=== PATIENT | female | born 1985 | race African-American/Black ===

== ENCOUNTER 2016-07-04 16:15 | Inpatient (IN) | payer OTHER ==
[~2016-07-04 16:15] MED LIST: BUTORPHANOL TARTRATE 1 MG/ML VIAL IVPUSH ONE; ELECTROLYTE-148 SOLN 500 ML IV ONE; PROMETHAZINE HCL 25 MG/1 ML VIAL IVPUSH ONE
[2016-07-04] MEDS ORDERED: ELECTROLYTE-148 SOLN 1,000 ML IV SCH (16:45)
[2016-07-04] MEDS ORDERED: ELECTROLYTE-148 SOLN 500 ML IV SCH (16:45)
[2016-07-04 17:22] VITALS: BMI 25.0
[2016-07-04] MEDS ORDERED: BUTORPHANOL TARTRATE 1 MG/ML VIAL IVPUSH ONE (18:00)
[2016-07-04 18:04] LABS: BASOPHIL 0.2 % (0-2.0); EOSINOPHIL 0.2 % (0-4.5); MCH 31.4 pg (25.7-33.7); MCHC 33.6 g/dl (32.0-36.0); MEAN CELL VOLUME 93.5 fl (80-96); MEAN PLT VOLUME 9.2 fl (7.5-11.1); NEUTROPHILS 66.5 % (42.8-82.8); PLATELET COUNT 273 K/MM3 (134-434); WHITE BLOOD COUNT 7.4 K/mm3 (4.0-10.0)
[2016-07-04 18:20] LABS: INR 0.94 (0.82-1.09); PROTHROMBIN TIME (PATIENT) 10.3 SEC (9.98-11.88)
[2016-07-04] MEDS ORDERED: TUBERCULIN PPD 5 TU/0.1ML SYRINGE (IN PATIENT USE ONLY) ID ONE (18:30)
[2016-07-04 18:31] LABS: CALCIUM 8.7 mg/dL (8.5-10.1); CREATININE 0.7 mg/dL (0.55-1.02)
--- NOTE | 2016-07-04 18:48 | HP ---
Admitting History and Physical - Admission Chief Complaint: labor pains History of Present Illness: 31 at39.5 comes for labor pains. Pt is from [facility]. Opos, rpr neg, rubella pos, hiv neg. Also h/o abnormal pap.Now arom, clear. 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: No: Alzheimer's, CVA, Dementia, Migraine, Multiple Sclerosis, Peripheral Neuropathy, Parkinson's, Seizure, Syncope, TIA, Vertigo, Other Cardiovascular: No: AFIB, Aneurysm, Aortic Insufficiency, Aortic Stenosis, CAD, CHF, Deep Vein Thrombosis, HTN, Hyperlipdemia, MS, Mitral Insufficiency, Mitral Stenosis, Murmur, Pulmonary Hypertension, Other Pulmonary: No: Asthma, Bronchitis, Cancer, COPD, O2 Dependent, Pneumonia, Previously Intubated, Pulmonary Embolus, Pulmonary Fibrosis, Sleep Apnea, Other Gastrointestinal: No: Ascites, Cancer, Constipation, Crohn's Disease, Diverticulitis, Diverticulosis, Esophageal Varices, Gastritis, GERD, GI Bleed, Hemorrhoids, Hiatal Hernia, Inflamatory Bowel Disease, Irritable Bowel Disease, Pancreatitis, Peptic Ulcer Disease, Ulcerative Colitis, Other Hepatobiliary: No: Cirrhosis, Cholelithiasis, Cholecystitis, Choledocholithiasis , Hepatitis A, Hepatitis B, Hepatitis C, Other Renal/: No: Renal Failure, Renal Inusuff, BPH, Cancer, Hematuria, Hemodialysis , Neurogenic Bladder, Renal Calculi, UTI, Other Reproductive: No: Ectopic , Endometriosis, Fibroids, PID, Polycystic Ovary Syndrome, Postmenopausal, Other ...: 3 ...Para: 0 Heme/Onc: No: Anemia, B12 Deficiency, Bleeding Disorder, Cancer, Current Chemotherapy, Current Radiation Therapy, Hemochromatosis, Hypercoaguable State, Myeloproliferative Synd, Sickle Cell Disease, Sickle Cell Trait, Thrombocytopenia, Other Infectious Disease: No: AIDS, C-Diff, Herpes Zoster, HIV, MRSA, STD's, Tuberculosis, VREF, Other Psych: No: Addictions, Anxiety, Bipolar, Depression, Panic, Psychosis, Schizophrenia, Other Musculoskeletal: No: Bursitis, Chronic low back pain, Hemiparesis, Hemiplegia, Osteoarthritis, Paraplegia, Other Rheumatology: No: Fibromyalgia, Gout, Lupus, Rheumatoid Arthritis, Sarcoidosis, Vasculitis, Other ENT: No: Allergic Rhinitis, Sinusitis, Other Endocrine: No: Forest's Disease, Zurich's Disease, Diabetes Insipidus, Diabetes Mellitus, Hyperparathyroidism, Hyperthyroidism, Hypothyroidism, Osteopenia, SIADH, Other Dermatology: No: Basal Cell, Cellulitis, Eczema, Melanoma, Psoriasis, Squamous Cell, Other - Past Surgical History Past Surgical History: No: None, AAA Repair, AICD, Amputation, Appendectomy, Arthrosocopy, AV Fistula/Graft, Bariatric Surgery, Breast Biopsy, Bypass, CABG, Carotid Endarterectomy, Cataract Removal, Cholecystectomy, Colectomy, Colonoscopy, Colostomy, Craniotomy, , Cystectomy, Hernia Repair, Hysterectomy, Ileal Conduit, Ileosotomy, Joint Replacement, Kidney Transplant, Laminectomy, Liver Transplant, Mastectomy, Nephrectomy, Oopherectomy, Orchiectomy, Permanent Pacemaker, Prostatectomy, Splenectomy, Stent, Thoracotomy , TURP, Tonsillectomy, Tubal Ligation, Upper Endoscopy, Valve Replacement, Vasectomy, Vein Stripping/Ligation - Advance Directives Advance Directives: No: Living Will, Health Care Proxy, DNR, Organ Donor, Tissue Donor, MOLST - Smoking History Smoking history: Never smoked Have you smoked in the past 12 months: No Aproximately how many cigarettes per day: 0 - Alcohol/Substance Use Hx Alcohol Use: No History of Substance Use: denies: None, Cocaine, Heroin, Marijuana, Prescription , Tranquilizers - Social History Usual Living Arrangement: No: Alone, With Spouse, With Parent, With Significant Other, With Child, Assisted Living, Senior Care, Other Home Medications - Allergies Allergies/Adverse Reactions: Allergies Allergy/AdvReac Type Severity Reaction Status Date / Time No Known Allergies Allergy Verified 02/25/16 10:34 - Home Medications Home Medications: Ambulatory Orders Vitamins (Sjr) - 1 tab PO DAILY 06/07/16 Review of Systems - Review of Systems Constitutional: reports: No Symptoms Eyes: reports: No Symptoms HENT: reports: No Symptoms Neck: reports: No Symptoms Cardiovascular: reports: No Symptoms Respiratory: reports: No Symptoms Gastrointestinal: reports: No Symptoms Genitourinary: reports: No Symptoms Musculoskeletal: reports: No Symptoms Integumentary: reports: No Symptoms Hematology/Lymphatic: reports: No Symptoms Psychiatric: reports: No Symptoms 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ination Vital Signs: Vital Signs Temperature 98.7 F 07/04/16 18:00 Pulse Rate 75 07/04/16 18:00 Respiratory Rate 20 07/04/16 18:00 Blood Pressure 123/77 07/04/16 18:00 O2 Sat by Pulse Oximetry (%) Constitutional: No: Well Nourished, No Distress, Calm, Anxious, Ashen, Cachectic , Diaphoresis, Mild Distress, Moderate Distress, Severe Distress, Obese, Pallor , Poor Hygeine, Thin, Other Eyes: No: WNL, Conjunctiva Clear, EOM Intact, Cataracts, Diplopia, Occular Prosthesis, PERRL, Ptosis, Sclera Icterus, Tearing, Other HENT: No: WNL, Atraumatic, Normocephalic, Drooling, Epistaxis, Hoarseness, Nasal Congestion, Pharyngeal Erythema, Rhinnorhea, Thrush, Tonsillar Exudate, Other Cardiovascular: No: WNL, Regular Rate and Rhythm, Bradycardia, Tachycardia, Pulse Irregular, Bruit, JVD, Gallop, Murmur, Rub, S1, S2, S3, S4, Varicosities, Other Respiratory: No: WNL, Regular, CTA Bilaterally, Accessory Muscle Use, Bradypnea , Rodrigue-Gardiner, Cough, Diminished, Dullness, Hyperresonant, Intubated, Kussmaul , Mechanically Ventilated, On BiPap, On Nasal O2, On Venti-Mask, Orthopnea, Poor Air Entry, Rales, Rhonchi, SOB, SOB on Exertion, Stridor, Tachypnea, Wheezes, Other Gastrointestinal: No: WNL, Normal Bowel Sounds, Soft, Abdomen, Obese, Ascites, Distention, Hematemesis, Hemorrhoids, Hepatomegaly, Hernia, Hyperactive Bowel Sounds, Hypoactive Bowel Sounds, Melena, Palpable Mass, Pulsatile Mass, Rectal Bleeding, Splenomegaly, Tenderness, Tenderness, Epigastrium, Tenderness, Rebound , Vomiting, Other Breast(s): No: WNL, Left, Right, Breast Implants, Dimpling, Discharge from Nipple, Gynecomastia, Mass, Nipple Inversion, Skin Changes, Other Extremities: No: WNL, Amputation, Calf Tenderness, Cold, Cool, Cyanosis, Deformity, Delayed Capillary Refill, Erythema, External Rotation, Internal Rotation, Pallor, Shortened, Other Labs: CBC, BMP 07/04/16 17:20 07/04/16 17:20 Assessment/Plan as above admit labs epidural prn expect
[2016-07-04] MEDS ORDERED: FENTANYL/BUPIVACAINE/NS/PF - PCEA - 50 ML DISP.SYRIN EP SCH (19:45)
--- NOTE | 2016-07-04 22:11 | PN ---
Ante-Partal Exam - Subjective Vital Signs: Vital Signs Temperature 98 F 07/04/16 19:30 Pulse Rate 77 07/04/16 20:45 Respiratory Rate 20 07/04/16 20:45 Blood Pressure 128/71 07/04/16 20:45 O2 Sat by Pulse Oximetry (%) 100 07/04/16 20:45 Headache: No Visual changes: No Right upper quadrant pain: No - Contractions Contractions: Yes Regularity: Regular Intensity: Moderate Monitor Mode: External - Exam during Labor Heart Rate: 150 Variability: Moderate Heart Rate Location: Midline Category: I Monitor Accelerations: Present Monitor Decelerations: None Exam: Vaginal Dilatation (cm): 10
[2016-07-04] MEDS ORDERED: METHYLERGONOVINE MALEATE 0.2 MG/1 ML AMP IM PRN (22:19)
[2016-07-04] MEDS ORDERED: BENZOCAINE 28 GM HEMORRHOIDAL OINTMENT TP PRN (22:19)
[2016-07-04] MEDS ORDERED: oxyCODONE HCL 5 MG TABLET PO PRN (22:19)
[2016-07-04] MEDS ORDERED: WITCH HAZEL 50% (TUCKS) 40 PAD/JAR PAD TP PRN (22:19)
[2016-07-04] MEDS ORDERED: BISACODYL 10 MG SUPP.RECT RC PRN (22:19)
[2016-07-04] MEDS ORDERED: BENZOCAINE 20% 57 GM BOTTLE TP PRN (22:19)
--- NOTE | 2016-07-04 22:22 | PN ---
Delivery - Delivery Vaginal Delivery: No Problems Type of Anesthesia: Local Episiotomy/Laceration: Midline EBL (cc): 300 Delivery, Single - Feeding Plan Initial Plan: Exclusive throughout hospitalization
[2016-07-04] MEDS ORDERED: OXYTOCIN 20 UNITS in 0.9% NS 1,000 ML IV SCH (22:30)
[2016-07-05] MEDS: IBUPROFEN 600 MG TABLET (FP) PO PRN ×3 (00:49→20:23)
[2016-07-05] MEDS: ACETAMINOPHEN 325 MG TABLET (FP) PO PRN ×3 (00:49→20:24)
--- NOTE | 2016-07-05 04:51 | PN ---
Post Progress Note Post Day: 1 Type of Delivery: Vital Signs: Vital Signs Temperature 98.5 F 07/05/16 00:30 Pulse Rate 82 07/05/16 00:30 Respiratory Rate 18 07/05/16 00:30 Blood Pressure 109/64 07/05/16 00:30 O2 Sat by Pulse Oximetry (%) 100 07/04/16 22:30 Breast Exam: Yes: Soft Uterus: Yes: Fundus Firm Abdomen/GI: Yes: Abdomen soft Lochia: Yes: Rubra Lochia, amount: Small Extremities: Yes: Calves non-tender Perineum: Yes: Intact Activity: Ambulating - Labs Labs: CBC WBC 7.4 K/mm3 (4.0-10.0) 07/04/16 17:20 RBC 3.79 M/mm3 (3.60-5.2) 07/04/16 17:20 Hgb 11.9 GM/dL (10.7-15.3) 07/04/16 17:20 Hct 35.4 % (32.4-45.2) 07/04/16 17:20 MCV 93.5 fl (80-96) 07/04/16 17:20 MCHC 33.6 g/dl (32.0-36.0) 07/04/16 17:20 RDW 14.0 % (11.6-15.6) 07/04/16 17:20 Plt Count 273 K/MM3 (134-434) 07/04/16 17:20 MPV 9.2 fl (7.5-11.1) 07/04/16 17:20 Neutrophils % 66.5 % (42.8-82.8) 07/04/16 17:20 Lymphocytes % 23.0 % (8-40) D 07/04/16 17:20 Monocytes % 10.1 % (3.8-10.2) 07/04/16 17:20 Eosinophils % 0.2 % (0-4.5) 07/04/16 17:20 Basophils % 0.2 % (0-2.0) 07/04/16 17:20 Assessment/Plan as above oob reg diet
[2016-07-05 08:27] LABS: BASOPHIL 0.1 % (0-2.0); MCH 31.2 pg (25.7-33.7); MCHC 33.2 g/dl (32.0-36.0); MEAN CELL VOLUME 94.2 fl (80-96); MEAN PLT VOLUME 8.6 fl (7.5-11.1); NEUTROPHILS 73.3 % (42.8-82.8); PLATELET COUNT 234 K/MM3 (134-434); RDW 13.9 % (11.6-15.6); WHITE BLOOD COUNT 11.6 K/mm3 (4.0-10.0)
[2016-07-05] MEDS ORDERED: DIPHTH,PERTUSS(ACELL),TET 0.5 ML DISP.SYRIN IM ONE (10:00)
[2016-07-05] MEDS ORDERED: SENNOSIDES/DOCUSATE COMBO (SENNA PLUS) TABLET (UD) PO PRN (22:00)
[2016-07-06 08:20] VITALS: BP 110/65; PULSE 76; TEMP 98
--- NOTE | 2016-07-06 08:53 | PN ---
Progress Note (short form) - Note Progress Note: ppd 2 doing well, no c/o abdomen uterus firm, non tender no calf tenderness CBC, BMP 07/05/16 07:30 07/04/16 17:20 Last Vital Signs Temp Pulse Resp BP Pulse Ox 98 F 76 20 110/65 100 07/06/16 08:19 07/06/16 08:19 07/06/16 08:19 07/06/16 08:19 07/04/16 22:30 plan d/c home , rtc 4 weeks
[2016-07-06] MEDS: ACETAMINOPHEN 325 MG TABLET (FP) PO PRN (09:51)
[2016-07-06] MEDS: IBUPROFEN 600 MG TABLET (FP) PO PRN (09:53)
--- NOTE | 2016-08-25 14:04 | DS ---
DATE OF ADMISSION: DATE OF DISCHARGE: DATE OF DICTATION: 08/24/2016 Patient was seen throughout her hospital course and noted to be doing well. The patient was subsequently discharged home to be followed up in the office. KRISTIE IZAGUIRRE M.D. FARIDA/[id number]
== END 2016-07-06 12:30 | disposition home or self-care (01) | DRG 775 ==
LOC: JLDR 16:15 → J3W 07-05 00:44
PROVIDERS: ADMIT Obstetrics & Gynecology; ATTEND Obstetrics & Gynecology
PROC: 10E0XZZ Delivery of Products of Conception, External Approach (ICD-10-PCS; principal; 2016-07-04)
PROC: 0W8NXZZ Division of Female Perineum, External Approach (ICD-10-PCS; 2016-07-04)
DX: O80 Encounter for full-term uncomplicated delivery (principal); Z3A.39 39 weeks gestation of pregnancy; Z37.0 Single live birth
CPT/HCPCS: 36415; 59409; 80048; 85025; 85610; 85730; 86593; 86850; 86900; 86901; 90715

== ENCOUNTER 2017-08-22 07:00 | Inpatient (IN) | payer OTHER ==
[2017-08-22] MEDS ORDERED: ELECTROLYTE-148 SOLN 1,000 ML IV SCH ×2 (07:30→08:15)
[2017-08-22 07:35] VITALS: BMI 27.7
[2017-08-22] MEDS ORDERED: BUPIVACAINE HCL/PF 0.25% (2.5MG/ML) 10 ML VIAL ONE (08:09)
[2017-08-22] MEDS ORDERED: FENTANYL/BUPIVACAINE/NS/PF - PCEA - 50 ML DISP.SYRIN EP ONE ×2 (08:10→11:40)
[2017-08-22 08:15] LABS: BASO % 0.3 % (0-2.0); EOS % 0.7 % (0-4.5); HEMATOCRIT 35.6 % (32.4-45.2); HEMOGLOBIN 11.9 GM/dL (10.7-15.3); LYMPH % 25.7 % (8-40); MCH 31.5 pg (25.7-33.7); MCHC 33.5 g/dl (32.0-36.0); MEAN PLT VOLUME 8.9 fl (7.5-11.1); MONO % 9.8 % (3.8-10.2); NEUT % 63.5 % (42.8-82.8); PLATELET COUNT 250 K/MM3 (134-434); RBC 3.79 M/mm3 (3.60-5.2); RDW 13.5 % (11.6-15.6); WHITE BLOOD COUNT 5.9 K/mm3 (4.0-10.0)
--- NOTE | 2017-08-22 08:21 | HP ---
Past Medical History - Primary Care Physician PCP:: Shivani Castañeda - Admission Chief Complaint: 32 yrs , 39.6/7 weeks, onset LP since 4.30 AM, srom since 6.30 AM History of Present Illness: pnc at [address] [place] [address] . wt gain 11 lbs panel : 02/04/17 , O pos, , hbsag neg, Rpr nr, Hiv neg, Rubella immune , sickle neg, CF neg, gc/ct neg 05/23/17 Pngt 97, rpr nr, Quantiferon neg 07/04. Gbs neg, gc/ct neg, h/h 11.0/34, plt 271 . sono by MFM done 20 weeks sono normal anatomy on 04/09/17 h/o ampicillingiven during pregn History Source: Patient, Medical Record Limitations to Obtaining History: No Limitations - Past Medical History SURGICAL SERVICES DIRECTOR: No: Migraine, Seizure Cardiovascular: No: HTN Pulmonary: No: Asthma Hepatobiliary: No: Cholelithiasis Reproductive: Yes: Other (10/09/16 pap NILM, non 16/18 HR HPV pos) ...: 4 ...Para: 1 ( 07/04/2016 40 wks 6'7" ) ...Term: 1 ...: 0 ...Spon : 0 ...Induced : 2 (2008, 2013 ) ...Multiple Gestation: 0 ...LMP: 12/15/16 (Mistaken dates ) ... Weeks Gestation by Dates: 35.5 (By sono 39.6 weeks gestation ) ...EDC by Dates: 09/21/17 ...EDC by Sono: 08/23/17 (corrected EDC by sono on 03/12/17 -16.4 weeks .) Infectious Disease: Yes: STD's (Non 16/18 HR HPV pos 09/2016) Psych: No: Addictions, Anxiety, Bipolar, Depression, Panic, Schizophrenia Endocrine: No: Diabetes Mellitus, Hyperthyroidism, Hypothyroidism - Past Surgical History Past Surgical History: Yes: None Hx Myomectomy: No Hx Transabdominal Cerclage: No - Smoking History Smoking history: Never smoked Have you smoked in the past 12 months: No Aproximately how many cigarettes per day: 0 - Alcohol/Substance Use Hx Alcohol Use: No History of Substance Use: reports: None Home Medications - Allergies Allergies/Adverse Reactions: Allergies Allergy/AdvReac Type Severity Reaction Status Date / Time No Known Allergies Allergy Verified 02/25/16 10:34 - Home Medications Home Medications: Ambulatory Orders Vitamins (Sjr) - 1 tab PO DAILY 06/07/16 Ibuprofen [Motrin -] 600 mg PO QID #28 tablet 07/05/16 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 - Maternity Vital Signs: Vital Signs Temperature 99.3 F 08/22/17 07:00 Pulse Rate 95 H 08/22/17 07:00 Respiratory Rate 20 08/22/17 07:00 Blood Pressure 117/82 08/22/17 07:00 O2 Sat by Pulse Oximetry (%) Constitutional: Yes: Well Nourished, Severe Distress Eyes: Yes: WNL HENT: Yes: WNL, Normocephalic Neck: Yes: WNL Cardiovascular: Yes: WNL, Regular Rate and Rhythm Lungs: Clear to auscultation Breast(s): Yes: WNL - Abdominal Exam/OB Fundal Height: 38 Number of Fetuses: Single Presentation: Vertex Contractions: Yes Regularity: Regular (2-4 min) Intensity: Mod/Strong Monitor Mode: External Heart Rate (range): 140 Heart Rate Location: [facility] Category: I Accelerations: Uniform Decelerations: None - Vaginal Exam/OB Vaginal Bleediing: No Speculum Exam: No Dilatation (cm): 6 Effacement (%): 100 Amniotic Membrane Status: Leaking (fore water bulging) Nitrazine Test: Positive Amniotic Fluid: Yes: Clear Presentation: Vertex/Position (exam at 8.00 AM) Station: -2 - 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 Musculoskeletal: Yes: WNL Extremities: Yes: WNL. No: Calf Tenderness Edema: Yes Edema: LLE: 1+, RLE: 1+ Integumentary: Yes: Tattoos Deep Tendon Reflex Grade: Normal +2 ...Motor Strength: WNL Psychiatric: Yes: WNL, Alert, Oriented - Labs Lab Results: Laboratory Tests 08/22/17 08/22/17 08/22/17 07:58 07:58 07:58 WBC 5.9 D RBC 3.79 Hgb 11.9 Hct 35.6 Plt Count 250 Neutrophils % 63.5 Lymphocytes % 25.7 D Monocytes % 9.8 Eosinophils % 0.7 D Basophils % 0.3 PT with INR 10.40 INR 0.92 PTT (Actin FS) 27.0 Sodium 137 Potassium 3.8 Chloride 105 Carbon Dioxide 23 BUN 7 Creatinine 0.8 Random Glucose 105 Calcium 8.7 RPR Titer 08/22/17 07:58 WBC RBC Hgb Hct Plt Count Neutrophils % Lymphocytes % Monocytes % Eosinophils % Basophils % PT with INR INR PTT (Actin FS) Sodium Potassium Chloride Carbon Dioxide BUN Creatinine Random Glucose Calcium RPR Titer Nonreactive Problem List - Problems (1) with 39 completed weeks gestation Code(s): Z3A.39 - 39 WEEKS GESTATION OF (2) Labor established Code(s): GYY9564 - Assessment/Plan 32 yrs 39.6/7 weeks in active labor, possible high leak . Gbs neg Plan Epidural labor analgesia given at 8.20 AM trial vaginal delivery
[2017-08-22] MEDS ORDERED: NALOXONE HCL 0.4 MG/ML VIAL IVPUSH PRN (08:30)
[2017-08-22] MEDS ORDERED: FENTANYL/BUPIVACAINE/NS/PF - PCEA - 50 ML DISP.SYRIN EP SCH (08:30)
[2017-08-22 08:40] LABS: ANION GAP 9 (8-16); BLOOD UREA NITROGEN 7 mg/dL (7-18); CALCIUM 8.7 mg/dL (8.5-10.1); CHLORIDE 105 mmol/L (98-107); CO2 23 mmol/L (21-32); CREATININE 0.8 mg/dL (0.55-1.02); GLUCOSE,RANDOM 105 mg/dL (74-106); POTASSIUM 3.8 mmol/L (3.5-5.1); SODIUM 137 mmol/L (136-145)
[2017-08-22 08:51] LABS: INR 0.92 (0.82-1.09); PROTHROMBIN TIME (PATIENT) 10.4 SEC (9.7-13.0)
--- NOTE | 2017-08-22 10:52 | PN ---
Progress Note, Labor Vaginal Exam #1 Labor Exam Date: 08/22/17 Labor Exam Time: 10:20 Heart Rate (range): 130 Dilatation: 4-6 Effacement (%): 100 Amniotic Membrane Status: Leaking (AROM fore water clear fluid) Presentation: Vertex/Position Station: -1 Remarks: fhr cat-1 uc 4-6 min Plan Pitocin augmentation Selected Entries 08/22/17 08/22/17 10:00 10:15 Temperature 98.4 F Pulse Rate 64 Respiratory 18 Rate Blood Pressure 103/59 O2 Sat by Pulse 100 Oximetry (%) Vaginal Exam #2 Labor Exam Date: 08/22/17 Labor Exam Time: 13:00 Heart Rate (range): 120 Dilatation: 10 Effacement (%): 100 Amniotic Membrane Status: Ruptured Presentation: Vertex/Position Station: +3 Remarks: fhr cat-1 uc 2-3 min pt pushing Selected Entries 08/22/17 08/22/17 11:15 12:00 Temperature 98.6 F Pulse Rate 80 Respiratory 18 Rate Blood Pressure 102/67 O2 Sat by Pulse 100 Oximetry (%)
[2017-08-22] MEDS ORDERED: OXYTOCIN 30 UNITS in 0.9% NS 30 UNIT/500 ML INFUS.BAG IVPB SCH (11:00)
[2017-08-22] MEDS ORDERED: OXYTOCIN 30 UNITS in 0.9% NS 30 UNIT/500 ML INFUS.BAG IVPB ONE (11:12)
[2017-08-22] MEDS ORDERED: OXYTOCIN 20 UNITS in 0.9% NS 20 UNIT/1,000 ML INFUS.BAG IV ONE (13:06)
[2017-08-22] MEDS ORDERED: BENZOCAINE 20% 57 GM BOTTLE TP PRN (13:34)
[2017-08-22] MEDS ORDERED: BISACODYL 10 MG SUPP.RECT RC PRN (13:34)
[2017-08-22] MEDS ORDERED: oxyCODONE HCL 5 MG TABLET PO PRN (13:34)
[2017-08-22] MEDS ORDERED: METHYLERGONOVINE MALEATE 0.2 MG/1 ML AMP IM PRN (13:34)
[2017-08-22] MEDS ORDERED: BENZOCAINE 28 GM HEMORRHOIDAL OINTMENT TP PRN (13:34)
[2017-08-22] MEDS ORDERED: WITCH HAZEL 50% (TUCKS) 40 PAD/JAR PAD TP PRN (13:34)
[2017-08-22] MEDS ORDERED: OXYTOCIN 20 UNITS in 0.9% NS 20 UNIT/1,000 ML INFUS.BAG IV SCH (13:45)
--- NOTE | 2017-08-22 13:45 | PN ---
Delivery - Delivery Vaginal Delivery: No Problems, Spontaneous (baby delievered Vx, DIOGO position, immediate nasal & oral suction was done . .perineum intact) Type of Anesthesia: Epidural Episiotomy/Laceration: None EBL (cc): 200 Delivery, Single - Stages of Labor Date 1st Stage Initiatied: 08/22/17 Time 1st Stage Initiated: 05:00 Date 2nd Stage Initiated: 08/22/17 Time 2nd Stage Initiated: 13:00 Date of Delivery: 08/22/17 Time of Delivery: 13:15 Date Placenta Delivered: 08/22/17 Time Placenta Delivered: 13:17 Placenta: Yes: Spontaneous, Uterine Exploration - Condition of Infant Research Chef/Analytical Technician Present: No Gender: Female Weight: 6 lb 12 oz Position: Left, OA Total Hours ROM (Hrs/Mins): 4hrs 42 mi - 1 Minute Total Score: 9 5 Minutes Total Score: 9 - Feeding Plan Initial Plan: Elected not to breastfeed exclusively throughout hospitalization Remarks - Remarks Remarks: 32 yrs , 39.6/7 wks,admitted in labor. gbs neg .. care at , [facility] intrapartum course uneventful
[2017-08-22] MEDS: FERROUS SO4 325 MG TABLET (FP) PO SCH (20:34)
[2017-08-23] MEDS: IBUPROFEN 600 MG TABLET (FP) PO PRN ×2 (00:22→16:34)
[2017-08-23] MEDS: ACETAMINOPHEN 325 MG TABLET (FP) PO PRN ×2 (00:23→16:35)
--- NOTE | 2017-08-23 06:09 | PN ---
Progress Note (short form) - Note Progress Note: ppd 1doing well, no excess vaginal bleeding CBC, BMP 08/22/17 07:58 08/22/17 07:58 Last Vital Signs Temp Pulse Resp BP Pulse Ox 99.2 F 75 18 88/54 100 08/23/17 02:00 08/23/17 02:00 08/23/17 02:00 08/23/17 02:00 08/22/17 14:15 abdomen soft, no cva uterus firm lochia mild ppd 1 afebrile , plan ambulate , cbc
[2017-08-23 07:37] LABS: BASO % 0.2 % (0-2.0); EOS % 0.5 % (0-4.5); HEMATOCRIT 35.4 % (32.4-45.2); HEMOGLOBIN 11.7 GM/dL (10.7-15.3); LYMPH % 25.7 % (8-40); MCH 31.5 pg (25.7-33.7); MCHC 33.2 g/dl (32.0-36.0); MEAN CELL VOLUME 94.8 fl (80-96); NEUT % 63.6 % (42.8-82.8); PLATELET COUNT 271 K/MM3 (134-434); RBC 3.73 M/mm3 (3.60-5.2); RDW 13.6 % (11.6-15.6); WHITE BLOOD COUNT 8.3 K/mm3 (4.0-10.0)
[2017-08-23] MEDS: PRENATAL VITAMINS W/ FOLIC ACID TABLET (FP) PO SCH (09:36)
[2017-08-23] MEDS: FERROUS SO4 325 MG TABLET (FP) PO SCH ×2 (09:37→17:52)
[2017-08-23] MEDS ORDERED: DIPHTH,PERTUSS(ACELL),TET 0.5 ML DISP.SYRIN IM ONE (10:00)
[2017-08-23] MEDS ORDERED: SENNOSIDES/DOCUSATE COMBO (SENNA PLUS) TABLET (UD) PO PRN (22:00)
[2017-08-24] MEDS: FERROUS SO4 325 MG TABLET (FP) PO SCH (07:13)
--- NOTE | 2017-08-24 07:49 | DS ---
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-DIETARY COOK Vital Signs: Vital Signs Temperature 98.2 F 08/23/17 22:00 Pulse Rate 77 08/23/17 22:00 Respiratory Rate 18 08/23/17 22:00 Blood Pressure 117/56 08/23/17 22:00 O2 Sat by Pulse Oximetry (%) 100 08/22/17 14:15 Constitutional: Yes: Well Nourished, Other (c/o cramps) Eyes: Yes: WNL HENT: Yes: WNL Neck: Yes: WNL Cardiovascular: Yes: WNL Respiratory: Yes: WNL Gastrointestinal: Yes: WNL ...Rectal Exam: Yes: WNL Renal/: Yes: WNL Pelvis: Yes: WNL ....Post : Yes: Uterus firm, Uterus non-tender, Moderate lochia rubra ( perineum intact) Breast(s): Yes: WNL (BF, Not engorged) Musculoskeletal: Yes: WNL Extremities: Yes: WNL Edema: Yes Edema: LLE: Trace, RLE: Trace Integumentary: Yes: WNL Neurological: Yes: WNL, Alert, Oriented ...Motor Strength: WNL Psychiatric: Yes: WNL, Alert, Oriented Labs: CBC, BMP 08/23/17 06:00 08/22/17 07:58 Delivery - Delivery Vaginal Delivery: No Problems, Spontaneous (baby delievered Vx, DIOGO position, immediate nasal & oral suction was done . .perineum intact) Type of Anesthesia: Epidural Episiotomy/Laceration: None EBL (cc): 200 Delivery, Single - Stages of Labor Date 1st Stage Initiatied: 08/22/17 Time 1st Stage Initiated: 05:00 Date 2nd Stage Initiated: 08/22/17 Time 2nd Stage Initiated: 13:00 Date of Delivery: 08/22/17 Time of Delivery: 13:15 Time Placenta Delivered: 13:17 Placenta: Yes: Spontaneous, Uterine Exploration - Condition of Infant Blood Or Blood Bank Technician/Layout Technician Present: No Infant Gender: Female Weight: 6 lb 12 oz Position: Left, OA Total Hours ROM (Hrs/Mins): 4hrs 42 mi - 1 Minute Total Score: 9 5 Minutes Total Score: 9 - [place] Feeding Plan Initial Plan: Elected not to breastfeed exclusively throughout hospitalization Remarks - Remarks Remarks: 32 yrs , 39.6/7 wks,admitted in labor. gbs neg .. care at , [facility] intrapartum course uneventful pp course uneventful discharge today Discharge Summary Reason For Visit: LABOR Current Active Problems Labor established (Acute) with 39 completed weeks gestation (Acute) Condition: Stable - Instructions Diet, Activity, Other Instructions: Post Instructions DIET: Continue good diet high in protein, calcium, and iron rich foods. Drink at least eight (8) glasses of water daily in addition to other fluids. ct Regular diet MEDICATIONS: Continue vitamins and iron as previously directed. Motrin and Tylenol may be taken for minor discomfort. ACTIVITY: Mild to moderate exercise may be started in two (2) weeks. Take frequent rest periods. Resume normal activity after six (6) week check up. WOUND CARE OF OPERATIVE SITE: Continue use of perineal bottle until vaginal discharge stops. Keep area clean. Shower daily. Keep abdominal wound dry. Report any drainage or redness to physician. Tub baths, tampons and douches are not permitted for [address] Breast feeding & or Bottle feeding BREAST CARE: (For those that are not breast feeding): If engorgement occurs: Wear tight fitting bra. Take Tylenol or Motrin for pain. Apply cold packs (ice in bags to each breast ) FAMILY PLANNING: There are many control alternatives to pursue and they should be discussed at your first office visit. You may resume sexual activity after your six (6) week check up. (Remember, breast feeding is not a contraceptive) NEXT PHYSICIAN APPOINTMENT: Be certain to call for a six (6) week appointment, unless otherwise directed. Call Clinic or got to Emergency Dept if you have any of the following: Heavy vaginal bleeding Painful urination Leg pain Unusual odor noted to vaginal bleeding High fever Red streaking noted on breast Referrals: Shivani Castañeda MD [Staff Physician] - Disposition: HOME - Home Medications Comprehensive Discharge Medication List: Ambulatory Orders Vitamins (Sjr) - 1 tab PO DAILY 06/07/16 Acetaminophen [Tylenol .Regular Strength -] 650 mg PO Q3H PRN tablet 08/23/17 Ibuprofen [Motrin -] 200 mg PO Q4H PRN tablet 08/23/17 Vitamins (Sjr) - 1 tab PO DAILY tablet 08/23/17
[2017-08-24 08:31] VITALS: BP 120/73; PULSE 64; TEMP 98
[2017-08-24] MEDS: PRENATAL VITAMINS W/ FOLIC ACID TABLET (FP) PO SCH (09:28)
[2017-08-24] MEDS: ACETAMINOPHEN 325 MG TABLET (FP) PO PRN (09:31)
[2017-08-24] MEDS: IBUPROFEN 600 MG TABLET (FP) PO PRN (09:32)
== END 2017-08-24 10:20 | disposition home or self-care (01) | DRG 775 ==
LOC: JLDR 07:00 → JDEL 07:00 → EDSTATUS 07:13 → J3W 15:10
PROVIDERS: ADMIT Obstetrics & Gynecology; ATTEND Obstetrics & Gynecology
PROC: 10E0XZZ Delivery of Products of Conception, External Approach (ICD-10-PCS; principal; 2017-08-22)
DX: O80 Encounter for full-term uncomplicated delivery (principal); Z3A.39 39 weeks gestation of pregnancy; Z37.0 Single live birth
CPT/HCPCS: 36415; 59409; 80048; 85025; 85610; 85730; 86593; 86850; 86900; 86901; 90715

== ENCOUNTER → 2018-07-25 | Emergency (ER) | payer OTHER ==
[~2018-07-25] MED LIST changes: +ACETAMINOPHEN 1000 MG/100 ML VIAL (NON FORMULARY) IVPB ONE; +ACETAMINOPHEN INJECTION 100 ML IVPB ONE; -BUTORPHANOL TARTRATE 1 MG/ML VIAL IVPUSH ONE; -ELECTROLYTE-148 SOLN 500 ML IV ONE; +FAMOTIDINE 20 MG/50 ML IVPB 20 MG/50 ML MG IVPB ONE; +MAG HYDROX/AL HYDROX/SIMETH -MYLANTA- ORAL SUSPENSION PO ONE; +MAG HYDROX/AL HYDROX/SIMETH 30 ML UNIT-DOSE CUP ONE; -PROMETHAZINE HCL 25 MG/1 ML VIAL IVPUSH ONE; +RANITIDINE HCL 150 MG TABLET (FP) ONE; +RANITIDINE HCL 150 MG TABLET (FP) PO ONE; +SODIUM CHLORIDE 1,000 ML IV STA
[2018-07-25 09:15] VITALS: BP 110/54; PULSE 73; TEMP 98.1; BMI 29.7
--- NOTE | 2018-07-25 09:50 | PDOC ---
History of Present Illness - General Chief Complaint: Chest Pain Stated Complaint: CHEST PAIN Time Seen by Provider: 07/25/18 09:50 History Source: Patient Exam Limitations: No Limitations - History of Present Illness Initial Comments: 33 yo AA 31 week F w a pmh of HCL presents to the ER with right sided pleuritic chest pain for 1 day's duration. The patient states the pain began yesterday but has been getting worse so she came to the ER to be evaluated. She rates the pain as 6/10 and says it does not radiate. It is associated with slight nausea but no emesis. She denies any excessive diaphoresis. She states the pain is much worse when she takes a deep breath. The pain feels better when she leans forward and feels worse when she lies down. The pain is reproducible with palpation and her pain is worsened when she pushes on her chest. Moving her right arm also worsens her pain. She denies having experienced any cough, recent ravel, estrogen or other hormonal usage, or any personal or family history of blood clots. She denies any hx of hemoptysis or malignancy. She endorses recent bilateral leg swelling from but denies unilateral leg swelling one worse than the other. PCP: [facility] QUALITY CONTROL TECH: [facility] Social Hx: Denies smoking, drinking, or other substance usage Allergies: NKA, NKDA PSH: None reported Past History - Past Medical History Allergies/Adverse Reactions: Allergies Allergy/AdvReac Type Severity Reaction Status Date / Time No Known Allergies Allergy Verified 08/22/17 14:41 Home Medications: Ambulatory Orders NK [No Known Home Medication] 07/25/18 Asthma: No Cancer: No Cardiac Disorders: No COPD: No Diabetes: No HTN: No Seizures: No Thyroid Disease: No - Immunization History Immunization Up to Date: Yes - Suicide/Smoking/Psychosocial Hx Smoking History: Never smoked Have you smoked in the past 12 months: No Number of Cigarettes Smoked Daily: 0 Hx Alcohol Use: No Drug/Substance Use Hx: No Hx Substance Use Treatment: No Review of Systems - Review of Systems Able to Perform ROS?: Yes Comments:: CONSTITUTIONAL: Absent: fever, no chills, no fatigue EYES: Absent: visual changes ENT: Absent: ear pain, no sore throat CARDIOVASCULAR: Present: Chest pain Absent: no palpitations RESPIRATORY: Present: SOB Absent: cough GI: Absent: abdominal pain, no nausea, no vomiting, no constipation, no diarrhea GENITOURINARY: Absent: dysuria, no frequency, no hematuria MUSKULOSKELETAL: Absent: back pain, no arthralgia, no myalgia SKIN: Absent: rash NEURO: Absent: headache *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 - Vital Signs Last Vital Signs Temp Pulse Resp BP Pulse Ox 98.1 F 73 18 110/54 L 100 07/25/18 09:13 07/25/18 09:13 07/25/18 09:13 07/25/18 09:13 07/25/18 09:13 - 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 Comments: GENERAL: Well-appearing, well-nourished. No apparent distress. HEENT: Normocephalic, atraumatic. PERRL, EOM intact. CARDIOVASCULAR: Normal S1, S2. Regular rate and rhythm. PULMONARY: No evidence of respiratory distress. Lungs clear to auscultation bilaterally. No wheezing, rales or rhonchi. ABDOMEN: Soft, non-distended, non-tender. EXTREMITIES: Normal ROM in all four extremities. No gross deformities. SKIN: Warm, dry. No rash NEUROLOGICAL: No focal neurological deficits. ED Treatment Course - LABORATORY CBC & Chemistry Diagram: 07/25/18 10:16 07/25/18 10:16 Medical Decision Making - Medical Decision Making 33 yo AA 31 week F w a pmh of HCL presents to the ER with right sided pleuritic chest pain for 1 day's duration. The patient states the pain began yesterday but has been getting worse so she came to the ER to be evaluated. She rates the pain as 6/10 and says it does not radiate. It is associated with slight nausea but no emesis. She denies any excessive diaphoresis. She states the pain is much worse when she takes a deep breath. The pain feels better when she leans forward and feels worse when she lies down. The pain is reproducible with palpation and her pain is worsened when she pushes on her chest. Moving her right arm also worsens her pain. She denies having experienced any cough, recent ravel, estrogen or other hormonal usage, or any personal or family history of blood clots. She denies any hx of hemoptysis or malignancy. She endorses recent bilateral leg swelling from but denies unilateral leg swelling one worse than the other. VS: WNL DDx IBNLT: ACS/MT, arrhythmia, electrolyte/metabolic disturbance, PNA, pneumothorax, MSK chest pain, PE, gastric reflux/GERD Plan: Labs, EKG, CXR, ECHO, IV hydration, analgesia, GI cocktail, re-assess. Labs unremarkable. EKG: NS, LA enlargement, non-specific ST abnormality in V2,V3. ECHO: Normal Patient can be PERCed out. Clotilde's score 0 Patient feels much better after tylenol and GI cocktail and states she is not currently in any pain. She is able to ambulate around the ER easily and without discomfort. *DC/Admit/Observation/Transfer Diagnosis at time of Disposition: Chest pain - Discharge Dispostion Disposition: HOME Condition at time of disposition: Improved Decision to Admit order: No - Referrals Referrals: Roxann Saini MD [Staff Physician] - - Patient Instructions Printed Discharge Instructions: DI for Atypical Chest Pain Additional Instructions: You came into the ER with right sided chest pain. We believe this pain is not coming from your heart. Please make sure to follow up with another doctor in the next 24 to 48 hours to make sure your pain is being taken care and and you are getting better. Come back to the ER immediately if your pain worsens in any way shape or form. Come back if your pain does not go away or if you have any other new or worsening concerns. Thank you for coming to the [facility] ER. We hope you feel better soon! Print Language: SWEDISH - Post Discharge Activity
[2018-07-25 11:05] LABS: BASO % 0.5 % (0-2.0); EOS % 0.9 % (0-4.5); HEMATOCRIT 35.4 % (32.4-45.2); HEMOGLOBIN 11.8 GM/dL (10.7-15.3); LYMPH % 26.1 % (8-40); MCH 31.8 pg (25.7-33.7); MCHC 33.4 g/dl (32.0-36.0); MEAN CELL VOLUME 95.2 fl (80-96); MEAN PLT VOLUME 8.9 fl (7.5-11.1); NEUT % 63.5 % (42.8-82.8); PLATELET COUNT 276 K/MM3 (134-434); RBC 3.72 M/mm3 (3.60-5.2); RDW 13.6 % (11.6-15.6); WHITE BLOOD COUNT 5.8 K/mm3 (4.0-10.0)
--- NOTE | 2018-07-25 11:05 | EKG ---
Test Reason : Blood Pressure : / mmHG Vent. Rate : 064 BPM Atrial Rate : 064 BPM P-R Int : 152 ms QRS Dur : 070 ms QT Int : 370 ms P-R-T Axes : 067 059 038 degrees QTc Int : 381 ms NORMAL SINUS RHYTHM POSSIBLE LEFT ATRIAL ENLARGEMENT NONSPECIFIC ST ABNORMALITY ABNORMAL ECG NO PREVIOUS ECGS AVAILABLE Confirmed by JANINA GILL MD ([id number]) on 07/25/2018 11:04:45 AM Referred By: Confirmed By:JANINA GILL MD
--- NOTE | 2018-07-25 11:07 | PDOC ---
Documentation entered by Micheline Yap SCRIBE, acting as scribe for Snehal Aguirre MD. Snehal Aguirre MD: This documentation has been prepared by the Marely wei Amanda, SCRIBE, under my direction and personally reviewed by me in its entirety. I confirm that the documentation accurately reflects all work, treatment, procedures, and medical decision making performed by me. Attending Attestation - Resident Resident Name: Lenin Pratt - ED Attending Attestation I have performed the following: I have examined & evaluated the patient, The case was reviewed & discussed with the resident, I agree w/resident's findings & plan, Exceptions are as noted - HPI HPI: 07/25/18 10:26 The patient is a 33 year old Female, 31 week , with a significant past medical history of HCL, who presents to the ER with progressively worsening right sided pleuritic chest pain since yesterday. The patient reports the pain as 6/10 in severity without radiation of her pain. She reports intermittent nausea. The patient states the pain is alleviated when she leans forward and an exacerbated when lyin flat. She denies cough, recent ravel, estrogen or other hormonal usage, or any personal or family history of blood clots. She denies dizziness, palpitations, shortness of breath or diaphoresis. She denies vomiting, diarrhea, melena, or hematochezia. She denies urinary changes. - Physicial Exam PE: GENERAL: Awake, alert, and fully oriented, in no acute distress HEAD: No signs of trauma EYES: PERRLA, EOMI, sclera anicteric, conjunctiva clear ENT: Auricles normal inspection, hearing grossly normal, nares patent, oropharynx clear without exudates. Moist mucosa NECK: Normal ROM, supple, no lymphadenopathy, JVD, or masses LUNGS: Breath sounds equal, clear to auscultation bilaterally. No wheezes, and no crackles. Pain elicited upon lying flat HEART: Regular rate and rhythm, normal S1 and S2, no murmurs, rubs or gallops ABDOMEN: Soft, nontender, normoactive bowel sounds. No guarding, no rebound. No masses EXTREMITIES: Normal range of motion, no edema. No clubbing or cyanosis. No cords, erythema, or tenderness NEUROLOGICAL: Cranial nerves II through XII grossly intact. Normal speech, normal gait. Motor and sensation intact SKIN: Warm, Dry, normal turgor, no rashes or lesions noted. - Medical Decision Making Pt with positional R sided pleuritic cp x1 day. She has had dependent edema in her feet for about 1 month, no recent changes. She gets winded walking from room to room for the past month which is also unchanged. No exertional chest pain. Will obtain labs including trop. Will obtain echo to r/o cardiomyopathy. If all wnl, will discuss poss CTA to r/o PE.
[2018-07-25 11:40] LABS: ALBUMIN 2.7 g/dl (3.4-5.0); ALK PHOS 66 U/L (45-117); ANION GAP 5 MMOL/L (8-16); BILIRUBIN,TOTAL 0.2 mg/dL (0.2-1); BLOOD UREA NITROGEN 6 mg/dL (7-18); CALCIUM 9.2 mg/dL (8.5-10.1); CHLORIDE 102 mmol/L (98-107); CO2 26 mmol/L (21-32); CREATININE 0.4 mg/dL (0.55-1.3); GLUCOSE,RANDOM 79 mg/dL (74-106); INR 0.97 (0.83-1.09); POTASSIUM 4.7 mmol/L (3.5-5.1); PROTHROMBIN TIME (PATIENT) 11.4 SEC (9.7-13.0); SGOT/AST 31 U/L (15-37); SGPT/ALT 14 U/L (13-61); SODIUM 134 mmol/L (136-145); TOT PROT 7.2 g/dl (6.4-8.2)
--- NOTE | 2018-07-25 14:46 | ECHO ---
Name: MARISSA CEDENO Exam:Adult Echocardiogram Study Date: 07/25/2018 12:42 PM Age: 33 yrs Reason For Study: 31 WEEKS R/O CARDIOMYOPATHY Height: 67 in Weight: 190 lb BSA: 2.0 m2 MMode/2D Measurements & Calculations IVSd: 0.77 cm Ao root diam: 2.4 cm LVIDd: 4.9 cm LA dimension: 3.4 cm LVIDs: 3.3 cm LVPWd: 1.00 cm EDV(Teich): 115.5 ml LVOT diam: 2.2 cm ESV(Teich): 43.4 ml Doppler Measurements & Calculations MV E max roverto: 88.8 cm/sec Ao V2 max: 152.2 cm/sec MV A max roverto: 70.1 cm/sec Ao max P.3 mmHg MV E/A: 1.3 Ao V2 mean: 108.4 cm/sec MV dec time: 0.21 sec Ao mean P.1 mmHg Ao V2 VTI: 31.7 cm SAY(I,D): 1.7 cm2 SAY(V,D): 1.8 cm2 LV V1 max P.2 mmHg SV(LVOT): 54.3 ml LV V1 mean P.1 mmHg LV V1 max: 74.0 cm/sec LV V1 mean: 49.6 cm/sec LV V1 VTI: 14.8 cm TR max roverto: 198.2 cm/sec PA V2 max: 105.7 cm/sec TR max P.7 mmHg PA max P.5 mmHg PI end-d roverto: 50.4 cm/sec Med Peak E' Roverto: 17.7 cm/sec Med E/e': 5.0 Lat Peak E' Roverto: 11.3 cm/sec Lat E/e': 7.9 Left Ventricle The left ventricular size, thickness and function are normal. Right Ventricle The right ventricle is normal in size and function. Atria Normal left and right atrial size and function. Mitral Valve The mitral valve is normal in structure and function. There is no mitral valve stenosis. There is tra ce to mild mitral regurgitation. Tricuspid Valve The tricuspid valve is normal in structure and function. There is mild tricuspid regurgitation. Right ventricular systolic pressure is normal. Aortic Valve The aortic valve opens well. No hemodynamically significant valvular aortic stenosis. No aortic regur gitation is present. Pulmonic Valve The pulmonic valve is not well seen, but is grossly normal. There is no pulmonic valvular stenosis. Great Vessels The aortic root is normal size. Pericardium/Pleura There is no pericardial effusion. Interpretation Summary The left ventricular size, thickness and function are normal The right ventricle is normal in size and function. There is trace to mild mitral regurgitation. There is mild tricuspid regurgitation. Right ventricular systolic pressure is normal. There is no pericardial effusion. MD Meadows *Terence 07/25/2018 02:46 PM
== END | disposition home or self-care (01) ==
LOC: JER 09:11
PROC: 3E033NZ Introduction of Analgesics, Hypnotics, Sedatives into Peripheral Vein, Percutaneous Approach (ICD-10-PCS; principal; 2018-07-25)
PROC: 3E033GC Introduction of Other Therapeutic Substance into Peripheral Vein, Percutaneous Approach (ICD-10-PCS; 2018-07-25)
PROC: 3E0337Z Introduction of Electrolytic and Water Balance Substance into Peripheral Vein, Percutaneous Approach (ICD-10-PCS; 2018-07-25)
DX: R07.9 Chest pain, unspecified (principal); O26.893 Other specified pregnancy related conditions, third trimester; Z3A.31 31 weeks gestation of pregnancy
CPT/HCPCS: 36415; 71046-TC-FY; 76819-TC; 80053; 84484; 84702; 85025; 85610; 93005; 93010; 93306-TC; 99284-25; J0131; J7030

== ENCOUNTER 2018-09-08 21:46 | Inpatient (IN) | payer OTHER ==
[2018-09-08] MEDS ORDERED: BUTORPHANOL TARTRATE 2 MG/ML VIAL IVPB ONE (22:20)
[2018-09-08] MEDS ORDERED: DINOPROSTONE 10 MG VAGINAL SUPPOSITORY VG ONE (22:22)
--- NOTE | 2018-09-08 22:28 | HP ---
Past Medical History - Admission Chief Complaint: IOL for IUGR History of Present Illness: 33yo @ 38.0 wks by dixon, CJ 09/22/18 here for IOL for IUGR (<3%tile). Seen at [facility] today, EFWs consistently less than 10%tile- today measuring 34weeks with 5.4lbs estimated weight. +FM. No VB/LOF. No ctx. Consistent care at [address] [place], [place] [id number]. 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) - Past Surgical History Past Surgical History: Yes: None Hx Myomectomy: No Hx Transabdominal Cerclage: No - Smoking History Smoking history: Never smoked Have you smoked in the past 12 months: No Aproximately how many cigarettes per day: 0 - Alcohol/Substance Use Hx Alcohol Use: No History of Substance Use: reports: None Home Medications - Allergies Allergies/Adverse Reactions: Allergies Allergy/AdvReac Type Severity Reaction Status Date / Time No Known Allergies Allergy Verified 09/09/18 06:46 - Home Medications Home Medications: Ambulatory Orders Pnv No.95/Ferrous Fum/Folic AC [ Vitamin Tablet] 1 each PO DAILY 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 - Maternity Constitutional: Yes: Well Nourished, No Distress, Calm Eyes: Yes: WNL, Conjunctiva Clear, EOM Intact HENT: Yes: WNL, Atraumatic, Normocephalic Neck: Yes: WNL, Supple, Trachea Midline Cardiovascular: Yes: WNL, Regular Rate and Rhythm Breast(s): Yes: WNL - Abdominal Exam/OB Number of Fetuses: Single Presentation: Vertex Contractions: No Monitor Mode: External Category: I Accelerations: Non-Uniform Decelerations: None - Vaginal Exam/OB Vaginal Bleediing: No Speculum Exam: No Dilatation (cm): 2 Effacement (%): 50 Amniotic Membrane Status: Intact Presentation: Vertex/Position Station: -3 Assessment/Plan 33yo @ 38.0 wks here for IOL for IUGR Admit to L&D Cervidil IOL, pitocin/AROM augmentation Cat 1 tracing Epidural as needed Anticipate Toby Keyes
[2018-09-08] MEDS ORDERED: ELECTROLYTE-148 SOLN 1,000 ML IV SCH (22:30)
[2018-09-08 22:48] LABS: BASO % 0.3 % (0-2.0); EOS % 0.7 % (0-4.5); HEMOGLOBIN 11.3 GM/dL (10.7-15.3); LYMPH % 29.8 % (8-40); MCHC 33.3 g/dl (32.0-36.0); MEAN CELL VOLUME 96.1 fl (80-96); MEAN PLT VOLUME 8.8 fl (7.5-11.1); MONO % 10.8 % (3.8-10.2); NEUT % 58.4 % (42.8-82.8); PLATELET COUNT 257 K/MM3 (134-434); RBC 3.54 M/mm3 (3.60-5.2); RDW 14.3 % (11.6-15.6); WHITE BLOOD COUNT 5.6 K/mm3 (4.0-10.0)
[2018-09-08 22:58] LABS: INR 0.9 (0.83-1.09); PROTHROMBIN TIME (PATIENT) 10.6 SEC (9.7-13.0)
[2018-09-08 23:01] LABS: ACTIVATED PTT 28.7 SECONDS (25.2-36.5)
[2018-09-08 23:03] VITALS: BMI 36.2
[2018-09-08 23:14] LABS: BLOOD UREA NITROGEN 6.6 mg/dL (7-18); CALCIUM 8.9 mg/dL (8.5-10.1); CREATININE 0.7 mg/dL (0.55-1.3); POTASSIUM 4.2 mmol/L (3.5-5.1)
--- NOTE | 2018-09-08 23:14 | PN ---
Progress Note (short form) - Note Progress Note: Cervidil placed in posterior fornix. Cx 2 / -3 Category I FHT All questions answered. Patient tolerated well
[2018-09-09] MEDS ORDERED: BUTORPHANOL TARTRATE 2 MG/ML VIAL ONE (04:12)
[2018-09-09] MEDS ORDERED: OXYTOCIN 20 UNITS in 0.9% NS 20 UNIT/1,000 ML INFUS.BAG IV ONE (11:32)
--- NOTE | 2018-09-09 11:35 | PN ---
Progress Note (short form) - Note Progress Note: cx 3 to 4 cm, 80 vx -2 mi, fhr cat 1, cervidil removed, pitocin discussed
[2018-09-09] MEDS ORDERED: ELECTROLYTE-148 SOLN 1,000 ML IV SCH (11:45)
[2018-09-09] MEDS ORDERED: OXYTOCIN 30 UNITS in 0.9% NS 30 UNIT/500 ML INFUS.BAG IVPB SCH (11:45)
[2018-09-09] MEDS ORDERED: FENTANYL/BUPIVACAINE/NS/PF - PCEA - 50 ML DISP.SYRIN EP ONE ×3 (13:29→23:32)
[2018-09-09] MEDS: FENTANYL/BUPIVACAINE/NS/PF - PCEA - 50 ML DISP.SYRIN EP SCH (13:55)
[2018-09-09] MEDS ORDERED: NALOXONE HCL 0.4 MG/ML VIAL IVPUSH PRN (14:10)
--- NOTE | 2018-09-09 21:15 | PN ---
Progress Note (short form) - Note Progress Note: cx 5 cm 80 vx -3 mi , fhr cat 1, contraction regular , on pitocin , will cont. with pitocin induction
[2018-09-10] MEDS ORDERED: OXYTOCIN 20 UNITS in 0.9% NS 20 UNIT/1,000 ML INFUS.BAG IV ONE ×2 (00:54→03:53)
--- NOTE | 2018-09-10 01:33 | PN ---
Progress Note (short form) - Note Progress Note: cx 5 cm 70 vx -2 arom, clear , fhr cat 1, irregular contraction
[2018-09-10] MEDS ORDERED: WITCH HAZEL 50% (TUCKS) 40 PAD/JAR PAD TP PRN (03:00)
[2018-09-10] MEDS ORDERED: BENZOCAINE 28 GM HEMORRHOIDAL OINTMENT TP PRN (03:00)
[2018-09-10] MEDS ORDERED: METHYLERGONOVINE MALEATE 0.2 MG/1 ML AMP IM PRN (03:00)
[2018-09-10] MEDS ORDERED: BISACODYL 10 MG SUPP.RECT RC PRN (03:00)
[2018-09-10] MEDS ORDERED: oxyCODONE HCL 5 MG TABLET PO PRN (03:00)
[2018-09-10] MEDS ORDERED: BENZOCAINE 20% 57 GM BOTTLE TP PRN (03:00)
[2018-09-10] MEDS ORDERED: OXYTOCIN 20 UNITS in 0.9% NS 20 UNIT/1,000 ML INFUS.BAG IV SCH (03:00)
--- NOTE | 2018-09-10 03:10 | PN ---
Delivery - Delivery Vaginal Delivery: Spontaneous Type of Anesthesia: Epidural Episiotomy/Laceration: None (delivered live baby boy, 9/9 , placenta complete, no laceration, ebl 300cc) Delivery, Single - [place] Feeding Plan Initial Plan: Elected not to breastfeed exclusively throughout hospitalization
[2018-09-10 04:17] LABS: VENOUS PC02 35.9 mmHg (41-51); VENOUS PH 7.39 (7.31-7.41); VENOUS PO2 49.9 mmHg (30-40)
[2018-09-10] MEDS: FERROUS SO4 325 MG TABLET (FP) PO SCH ×2 (08:04→17:31)
[2018-09-10] MEDS: IBUPROFEN 600 MG TABLET (FP) PO PRN ×2 (08:07→17:31)
[2018-09-10] MEDS: ACETAMINOPHEN 325 MG TABLET (FP) PO PRN ×2 (08:08→17:32)
[2018-09-10] MEDS: PRENATAL VITAMINS W/ FOLIC ACID TABLET (FP) PO SCH (09:10)
--- NOTE | 2018-09-11 05:45 | PN ---
Post Progress Note Post Day: 1 Type of Delivery: Vital Signs: Vital Signs Temperature 98.6 F 09/11/18 00:40 Pulse Rate 77 09/11/18 00:40 Respiratory Rate 20 09/11/18 00:40 Blood Pressure 125/72 09/11/18 00:40 O2 Sat by Pulse Oximetry (%) 100 09/09/18 14:10 Uterus: Yes: Fundus below umbilicus Incision: Yes: Dressing dry and intact Abdomen/GI: Yes: Abdomen soft, Tolerating PO Lochia: Yes: Rubra Lochia, amount: Small Extremities: Yes: Calves non-tender Activity: Ambulating (Pain controlled. No fevers/chills.) - Labs Labs: CBC WBC 5.6 K/mm3 (4.0-10.0) 09/08/18 22:40 RBC 3.54 M/mm3 (3.60-5.2) L 09/08/18 22:40 Hgb 11.3 GM/dL (10.7-15.3) 09/08/18 22:40 Hct 34.0 % (32.4-45.2) 09/08/18 22:40 MCV 96.1 fl (80-96) H 09/08/18 22:40 MCH 32.0 pg (25.7-33.7) 09/08/18 22:40 MCHC 33.3 g/dl (32.0-36.0) 09/08/18 22:40 RDW 14.3 % (11.6-15.6) 09/08/18 22:40 Plt Count 257 K/MM3 (134-434) 09/08/18 22:40 MPV 8.8 fl (7.5-11.1) 09/08/18 22:40 Absolute Neuts (auto) 3.3 K/mm3 (1.5-8.0) 09/08/18 22:40 Neutrophils % 58.4 % (42.8-82.8) 09/08/18 22:40 Lymphocytes % 29.8 % (8-40) 09/08/18 22:40 Monocytes % 10.8 % (3.8-10.2) H 09/08/18 22:40 Eosinophils % 0.7 % (0-4.5) 09/08/18 22:40 Basophils % 0.3 % (0-2.0) 09/08/18 22:40 Nucleated RBC % 0 % (0-0) 09/08/18 22:40 Assessment/Plan 33yo s/p , PPD#1 Routine PP care Po pain control Labs reviewed Anticipate d/c to home PPD#2 Toby Keyes
[2018-09-11] MEDS: FENTANYL/BUPIVACAINE/NS/PF - PCEA - 50 ML DISP.SYRIN EP SCH (07:49)
[2018-09-11] MEDS: FERROUS SO4 325 MG TABLET (FP) PO SCH ×2 (08:25→17:52)
[2018-09-11] MEDS: ACETAMINOPHEN 325 MG TABLET (FP) PO PRN ×3 (08:28→20:48)
[2018-09-11] MEDS: IBUPROFEN 600 MG TABLET (FP) PO PRN ×3 (08:29→20:48)
[2018-09-11 08:48] LABS: BASO % 0.3 % (0-2.0); EOS % 1.3 % (0-4.5); HEMATOCRIT 33.2 % (32.4-45.2); HEMOGLOBIN 11.2 GM/dL (10.7-15.3); LYMPH % 37.1 % (8-40); MCH 32.3 pg (25.7-33.7); MCHC 33.7 g/dl (32.0-36.0); MEAN CELL VOLUME 95.8 fl (80-96); MEAN PLT VOLUME 8.9 fl (7.5-11.1); MONO % 10.2 % (3.8-10.2); NEUT % 51.1 % (42.8-82.8); RBC 3.46 M/mm3 (3.60-5.2); RDW 14.2 % (11.6-15.6); WHITE BLOOD COUNT 6.6 K/mm3 (4.0-10.0)
[2018-09-11 09:20] LABS: PLATELET COUNT 250 K/MM3 (134-434)
[2018-09-11] MEDS: PRENATAL VITAMINS W/ FOLIC ACID TABLET (FP) PO SCH (09:29)
--- NOTE | 2018-09-11 14:54 | DS ---
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-DESIGN CHECKER Vital Signs: Vital Signs Temperature 98.5 F 09/11/18 14:00 Pulse Rate 79 09/11/18 14:00 Respiratory Rate 20 09/11/18 14:00 Blood Pressure 117/78 09/11/18 14:00 O2 Sat by Pulse Oximetry (%) 100 09/09/18 14:10 Constitutional: Yes: Well Nourished, No Distress, Calm Eyes: Yes: WNL, Conjunctiva Clear, EOM Intact HENT: Yes: WNL, Atraumatic, Normocephalic Neck: Yes: WNL, Supple, Trachea Midline Cardiovascular: Yes: WNL, Regular Rate and Rhythm Respiratory: Yes: WNL, Regular, CTA Bilaterally Gastrointestinal: Yes: WNL ...Rectal Exam: Yes: WNL Renal/: Yes: WNL ....Post : Yes: Uterus firm, Uterus non-tender, Slight lochia rubra Breast(s): Yes: WNL Musculoskeletal: Yes: WNL Extremities: Yes: WNL Edema: No Integumentary: Yes: WNL Neurological: Yes: WNL, Alert, Oriented ...Motor Strength: WNL Psychiatric: Yes: WNL, Alert, Oriented Labs: CBC, BMP 09/11/18 07:00 09/08/18 22:40 Delivery - Delivery Vaginal Delivery: No Problems (no complication), Spontaneous Type of Anesthesia: Epidural Episiotomy/Laceration: None (delivered live baby boy, 9/9 , placenta complete, no laceration, ebl 300cc) EBL (cc): 300 Delivery, Single - Stages of Labor Date 1st Stage Initiatied: 09/09/18 Time 1st Stage Initiated: 13:30 Date 2nd Stage Initiated: 09/10/18 Time 2nd Stage Initiated: 01:30 Date of Delivery: 09/10/18 Time of Delivery: 02:48 Time Placenta Delivered: 02:55 Placenta: Yes: Spontaneous - Condition of Infant Food Counselor/Transmission Assembler Present: No Infant Gender: Male Weight: 5 lb 7 oz Position: Left, OA Total Hours ROM (Hrs/Mins): 1HOUR/18 MINUTES - 1 Minute Total Score: 9 5 Minutes Total Score: 9 - Bernie Feeding Plan Initial Plan: Elected not to breastfeed exclusively throughout hospitalization Discharge Summary Reason For Visit: INDUCTION OF LABOR Current Active Problems IUGR (intrauterine growth restriction) (Acute) Procedures: Principal: cervidil, pitocin induction for IUGR Condition: Stable - Instructions Diet, Activity, Other Instructions: Regular Diet Follow up in 4-6 weeks Referrals: Chris Yee MD [Staff Physician] - Disposition: HOME - Home Medications Comprehensive Discharge Medication List: Ambulatory Orders Pnv No.95/Ferrous Fum/Folic AC [ Vitamin Tablet] 1 each PO DAILY Ibuprofen [Motrin -] 600 mg PO QID PRN #28 tablet 09/10/18
[2018-09-11 20:47] VITALS: TEMP 98.9
[2018-09-11] MEDS ORDERED: SENNOSIDES/DOCUSATE COMBO (SENNA PLUS) TABLET (UD) PO PRN (22:00)
[2018-09-12] MEDS: FERROUS SO4 325 MG TABLET (FP) PO SCH (07:34)
[2018-09-12] MEDS: ACETAMINOPHEN 325 MG TABLET (FP) PO PRN (07:38)
[2018-09-12] MEDS: IBUPROFEN 600 MG TABLET (FP) PO PRN (07:39)
[2018-09-12 09:23] VITALS: BP 110/63; PULSE 77
--- NOTE | 2018-09-12 09:58 | PATH ---
Surgical Pathology Report Patient Name: MARISSA CEDENO [facility]. Rec. 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 Specimen(s) Received PLACENTA Clinical History 33-year-old female , 2 term deliveries and 2 induced. intact. Induction for IUGR Final Diagnosis PLACENTA, DELIVERY: FOCALLY DISRUPTED THIRD TRIMESTER PLACENTA WITH SUBCHORIONIC AND INTERVILLOUS FIBRIN DEPOSITION, THREE VESSEL UMBILICAL CORD AND UNREMARKABLE PLACENTAL MEMBRANES. Electronically Signed Wilfredo Vazquez M.D. Gross Description The specimen is received fresh labeled placenta and is a 418 gram, 16.5 x 14.5 x 2.5 cm. placenta with attached membranes and umbilical cord. The attached membranes are ramirez, translucent with focal opacities and insert marginally. The umbilical cord measures 12 cm. in length and averages 1 cm. in diameter. The cord inserts eccentrically, 6 cm. to the nearest margin. No true knots or strictures are identified. Cut surface of the umbilical cord reveals 3 vessels. The surface is hernandes-blue with minimal fibrin deposition and appropriate caliber vessels. The maternal surface is red-brown with focal defects. Sectioning reveals red-brown, spongy parenchyma. No lesions are identified. Escort Blind sections are submitted in three cassettes as follows: 1- membrane rolls and umbilical cord; 2-3- full thickness sections of placenta. /09/10/2018 [facility]09/10/2018
[2018-09-12] MEDS: PRENATAL VITAMINS W/ FOLIC ACID TABLET (FP) PO SCH (10:41)
== END 2018-09-12 11:45 | disposition home or self-care (01) | DRG 807 ==
LOC: JLDR 21:46 → J3W 09-10 05:00
PROVIDERS: ADMIT Obstetrics & Gynecology; ATTEND Obstetrics & Gynecology
PROC: 3E033VJ Introduction of Other Hormone into Peripheral Vein, Percutaneous Approach (ICD-10-PCS; 2018-09-08)
PROC: 3E0P7VZ Introduction of Hormone into Female Reproductive, Via Natural or Artificial Opening (ICD-10-PCS; 2018-09-08)
PROC: 10E0XZZ Delivery of Products of Conception, External Approach (ICD-10-PCS; principal; 2018-09-10)
PROC: 3E0R3BZ Introduction of Anesthetic Agent into Spinal Canal, Percutaneous Approach (ICD-10-PCS; 2018-09-10)
DX: O36.5920 Maternal care for other known or suspected poor fetal growth, second trimester, not applicable or unspecified (principal); Z37.0 Single live birth; O28.8 Other abnormal findings on antenatal screening of mother; Z3A.38 38 weeks gestation of pregnancy
CPT/HCPCS: 36415; 59409; 80048; 82803; 85025; 85610; 85730; 86593; 86850; 86900; 86901; 88307-TC

== ENCOUNTER 2021-11-17 10:00 | Inpatient (IN) | payer OTHER ==
[2021-11-17] MEDS ORDERED: SODIUM PHOSPHATE/NA BIPHOS 133 ML ENEMA RC ONE (10:50)
[2021-11-17] MEDS ORDERED: DINOPROSTONE 10 MG VAGINAL SUPPOSITORY VG ONE (10:51)
[2021-11-17] MEDS ORDERED: PROMETHAZINE HCL 25 MG/1 ML VIAL IVPUSH ONE (10:52)
[2021-11-17] MEDS ORDERED: BUTORPHANOL TARTRATE 1 MG/ML VIAL IVPB ONE (10:52)
[2021-11-17] MEDS ORDERED: ELECTROLYTE-148 SOLN 1,000 ML IV SCH (11:00)
[2021-11-17 12:27] VITALS: BMI 34.9
[2021-11-17] MEDS ORDERED: AMPICILLIN - 2 GM in SODIUM CHLORIDE 100 ML IVPB ONE (19:05)
[2021-11-17] MEDS ORDERED: AMPICILLIN SODIUM 2 GM VIAL ONE (21:04)
[2021-11-17] MEDS ORDERED: AMPICILLIN - 1 GM in SODIUM CHLORIDE 100 ML IVPB SCH (23:15)
[2021-11-18] MEDS ORDERED: FENTANYL/BUPIVACAINE/NS/PF - PCEA - 50 ML DISP.SYRIN EP ONE (00:23)
[2021-11-18] MEDS ORDERED: NALOXONE HCL 0.4 MG/ML VIAL IVPUSH PRN (00:32)
[2021-11-18] MEDS ORDERED: OXYTOCIN 20 UNITS in 0.9% NS 20 UNIT/1,000 ML INFUS.BAG IV ONE (00:38)
[2021-11-18] MEDS ORDERED: AMPICILLIN SODIUM 1 GM VIAL ONE (00:38)
[2021-11-18] MEDS ORDERED: FENTANYL/BUPIVACAINE/NS/PF - PCEA - 50 ML DISP.SYRIN EP SCH (00:45)
[2021-11-18] MEDS ORDERED: oxyCODONE HCL 5 MG TABLET PO PRN (03:02)
[2021-11-18] MEDS ORDERED: METHYLERGONOVINE MALEATE 0.2 MG/1 ML AMP IM PRN (03:02)
[2021-11-18] MEDS ORDERED: BENZOCAINE 20% 57 GM BOTTLE TP PRN (03:02)
[2021-11-18] MEDS ORDERED: WITCH HAZEL 50% (TUCKS) 40 PAD/JAR PAD TP PRN (03:02)
[2021-11-18] MEDS ORDERED: ACETAMINOPHEN 325 MG TABLET (FP) PO PRN (03:02)
[2021-11-18] MEDS ORDERED: BENZOCAINE 28 GM HEMORRHOIDAL OINTMENT TP PRN (03:02)
[2021-11-18] MEDS ORDERED: BISACODYL 10 MG SUPP.RECT RC PRN (03:02)
[2021-11-18] MEDS ORDERED: OXYTOCIN 20 UNITS in 0.9% NS 20 UNIT/1,000 ML INFUS.BAG IV SCH (03:15)
[2021-11-18 03:52] LABS: VENOUS BASE EXCESS -1.6 mmol/L (-2-2); VENOUS O2 SATURATION 54.9 % (70-80); VENOUS PCO2 52.6 mmHg (38-52); VENOUS PH 7.303 (7.310-7.410)
[2021-11-18 03:53] LABS: CORD BASE EXCESS -8.1 mmol/L (0-2); CORD HCO3 22.5 mmHg (20-29); CORD PCO2 72.6 mmHg (30-78); CORD pH 7.11 (7.14-7.44)
[2021-11-18] MEDS: FERROUS SO4 325 MG TABLET (FP) PO SCH ×2 (08:52→18:15)
[2021-11-18] MEDS: IBUPROFEN 600 MG TABLET (FP) PO PRN ×3 (08:52→21:10)
[2021-11-18] MEDS: PRENATAL VITAMINS W/ FOLIC ACID TABLET (FP) PO SCH (09:27)
[2021-11-19 08:52] LABS: BASO % 0.4 % (0-2.0); EOS % 1.3 % (0-4.5); HEMATOCRIT 32.4 % (32.4-45.2); HEMOGLOBIN 11.1 GM/dL (10.7-15.3); LYMPH % 37.9 % (8-40); MCH 31.8 pg (25.7-33.7); MCHC 34.2 g/dl (32.0-36.0); MEAN PLT VOLUME 8.7 fl (7.5-11.1); MONO % 10.7 % (3.8-10.2); NEUT % 49.7 % (42.8-82.8); PLATELET COUNT 259 10^3/uL (134-434); RBC 3.49 M/mm3 (3.60-5.2); RDW 14.4 % (11.6-15.6); WHITE BLOOD COUNT 6.6 K/mm3 (4.0-10.0)
[2021-11-19] MEDS: IBUPROFEN 600 MG TABLET (FP) PO PRN ×2 (10:04→14:30)
[2021-11-19] MEDS: FERROUS SO4 325 MG TABLET (FP) PO SCH ×2 (10:05→18:13)
[2021-11-19] MEDS: PRENATAL VITAMINS W/ FOLIC ACID TABLET (FP) PO SCH (10:05)
[2021-11-19] MEDS ORDERED: SENNOSIDES/DOCUSATE COMBO (SENNA PLUS) TABLET (UD) PO PRN (22:00)
[2021-11-19 22:38] VITALS: RESP 18
[2021-11-20] MEDS: IBUPROFEN 600 MG TABLET (FP) PO PRN ×3 (00:19→09:51)
[2021-11-20] MEDS: FERROUS SO4 325 MG TABLET (FP) PO SCH (08:33)
[2021-11-20] MEDS: PRENATAL VITAMINS W/ FOLIC ACID TABLET (FP) PO SCH (09:51)
[2021-11-20 11:16] VITALS: BP 129/71; PULSE 75; TEMP 98.7
== END 2021-11-20 12:10 | disposition home or self-care (01) | DRG 807 ==
LOC: JLDR 10:00 → J3W 11-18 05:31
PROVIDERS: ADMIT Obstetrics & Gynecology; ATTEND Obstetrics & Gynecology
PROC: 3E0P7VZ Introduction of Hormone into Female Reproductive, Via Natural or Artificial Opening (ICD-10-PCS; 2021-11-17)
PROC: 10E0XZZ Delivery of Products of Conception, External Approach (ICD-10-PCS; principal; 2021-11-18)
DX: O48.0 Post-term pregnancy (principal); O99.824 Streptococcus B carrier state complicating childbirth; O99.214 Obesity complicating childbirth; O69.81X0 Labor and delivery complicated by cord around neck, without compression, not applicable or unspecified; Z3A.40 40 weeks gestation of pregnancy; Z37.0 Single live birth
CPT/HCPCS: 36415; 36600; 59409; 82803; 85025

== ENCOUNTER 2023-05-18 05:50 | Inpatient (IN) | payer OTHER ==
[2023-05-18] MEDS ORDERED: OXYTOCIN 20 UNITS in 0.9% NS 20 UNIT/1,000 ML INFUS.BAG IV ONE (06:18)
[2023-05-18] MEDS: OXYTOCIN 20 UNITS in 0.9% NS 20 UNIT/1,000 ML INFUS.BAG IV SCH (06:20)
[2023-05-18] MEDS ORDERED: WITCH HAZEL 50% (TUCKS) 40 PAD/JAR PAD TP PRN (06:37)
[2023-05-18] MEDS ORDERED: oxyCODONE HCL 5 MG TABLET PO PRN (06:37)
[2023-05-18] MEDS ORDERED: BISACODYL 10 MG SUPP.RECT RC PRN (06:37)
[2023-05-18] MEDS ORDERED: BENZOCAINE 20% 57 GM BOTTLE TP PRN (06:37)
[2023-05-18] MEDS ORDERED: BENZOCAINE 28 GM HEMORRHOIDAL OINTMENT TP PRN (06:37)
[2023-05-18] MEDS ORDERED: METHYLERGONOVINE MALEATE 0.2 MG/1 ML AMP IM PRN (06:37)
[2023-05-18] MEDS ORDERED: IBUPROFEN 600 MG TABLET (FP) PO ONE (06:58)
[2023-05-18] MEDS: IBUPROFEN 600 MG TABLET (FP) PO PRN (07:02)
[2023-05-18 07:07] LABS: BASO % 0.3 % (0-2.0); EOS % 0.4 % (0-4.5); HEMATOCRIT 36.5 % (32.4-45.2); HEMOGLOBIN 12.3 GM/dL (10.7-15.3); LYMPH % 32.9 % (8-40); MCH 30.6 pg (25.7-33.7); MCHC 33.6 g/dl (32.0-36.0); MEAN CELL VOLUME 91.1 fl (80-96); MEAN PLT VOLUME 8.8 fl (7.5-11.1); MONO % 9.6 % (3.8-10.2); NEUT % 56.8 % (42.8-82.8); PLATELET COUNT 336 10^3/uL (134-434); RBC 4.01 M/mm3 (3.60-5.2); RDW 13.9 % (11.6-15.6); WHITE BLOOD COUNT 8.4 K/mm3 (4.0-10.0)
[2023-05-18 07:18] VITALS: RESP 18; BMI 34.9
[2023-05-18 07:22] LABS: POTASSIUM 3.8 mmol/L (3.5-5.1)
[2023-05-18 07:23] LABS: INR 0.94 (0.83-1.09); PROTHROMBIN TIME (PATIENT) 10.9 SEC (9.7-13.0)
[2023-05-18 07:23] LABS: CALCIUM 9.4 mg/dL (8.5-10.1)
[2023-05-18 07:24] LABS: BLOOD UREA NITROGEN 7.8 mg/dL (7-18)
[2023-05-18 07:25] LABS: ACTIVATED PTT 26.5 SECONDS (25.2-36.5)
[2023-05-18 07:26] LABS: CREATININE 0.8 mg/dL (0.55-1.3)
[2023-05-18] MEDS: ACETAMINOPHEN 325 MG TABLET (FP) PO PRN (09:55)
[2023-05-19 09:25] LABS: BASO % 0.5 % (0-2.0); EOS % 0.9 % (0-4.5); HEMATOCRIT 33.6 % (32.4-45.2); HEMOGLOBIN 11.1 GM/dL (10.7-15.3); LYMPH % 29.8 % (8-40); MCH 30.3 pg (25.7-33.7); MCHC 32.9 g/dl (32.0-36.0); MEAN CELL VOLUME 91.9 fl (80-96); MEAN PLT VOLUME 8.9 fl (7.5-11.1); MONO % 9.8 % (3.8-10.2); PLATELET COUNT 306 10^3/uL (134-434); RBC 3.65 M/mm3 (3.60-5.2); RDW 14.2 % (11.6-15.6); WHITE BLOOD COUNT 7.9 K/mm3 (4.0-10.0)
[2023-05-19] MEDS ORDERED: SENNOSIDES/DOCUSATE COMBO (SENNA PLUS) TABLET (UD) PO PRN (22:00)
[2023-05-20 09:14] VITALS: BP 113/60; PULSE 83; TEMP 98.6
== END 2023-05-20 12:25 | disposition home or self-care (01) | DRG 807 ==
LOC: JLDR 05:50 → J3W 09:25
PROVIDERS: ADMIT Obstetrics & Gynecology Obstetrics; ATTEND Obstetrics & Gynecology Obstetrics
PROC: 10E0XZZ Delivery of Products of Conception, External Approach (ICD-10-PCS; principal; 2023-05-18)
DX: O48.0 Post-term pregnancy (principal); O62.3 Precipitate labor; Z3A.40 40 weeks gestation of pregnancy; Z37.0 Single live birth
CPT/HCPCS: 36415; 80048; 85025; 85610; 85730; 86780; 86850; 86900; 86901